=== PATIENT | female | born 1980 | race Caucasian/White ===

== ENCOUNTER 2018-08-08 12:50 | Day surgery (SDC) | payer OTHER ==
[2018-08-08] MEDS ORDERED: ONDANSETRON 4 MG/2 ML VIAL IVP ONE (13:15)
[2018-08-08] MEDS ORDERED: NS 1,000 ML IV ONE (13:15)
--- NOTE | 2018-08-08 13:15 | EDPHY ---
H & P Stated Complaint: c/o RLQ pain followed by n/v x 1 hr Time Seen by Provider: 08/08/18 13:15 HPI/ROS: CHIEF COMPLAINT: Acute right lower quadrant pain, vomiting HISTORY OF PRESENT ILLNESS: Patient presents the ED after she developed acute right lower quadrant pain with an episode of vomiting earlier today. The patient reports she had fairly significant discomfort for approximately an hour. It has improved however not subsided. She denies prior history of this type pain. She denies any antecedent dysuria or hematuria. She denies any history of abdominal surgery. She has no significant past medical history. She takes no regular medications. She just finished her most recent menstrual cycle. The patient currently rates her pain is moderate in nature. REVIEW OF SYSTEMS: A comprehensive 10 point review of systems is otherwise negative aside from elements mentioned in the history of present illness. Source: Patient Exam Limitations: No limitations - Medical/Surgical History Hx Asthma: No Hx Chronic Respiratory Disease: No Hx Diabetes: No Hx Cardiac Disease: No Hx Renal Disease: No Hx Cirrhosis: No Hx Alcoholism: No Hx HIV/AIDS: No Hx Splenectomy or Spleen Trauma: No Other PMH: none - Social History Smoking Status: Never smoked - Physical Exam Exam: General Appearance: Alert, no distress Eyes: Pupils equal and round no pallor or injection ENT, Mouth: Mucous membranes moist Respiratory: There are no retractions, lungs are clear to auscultation Cardiovascular: Regular rate and rhythm Gastrointestinal: Tenderness to deep palpation noted in the right lower quadrant and pelvic region, minimal right upper quadrant tenderness, no peritoneal signs, no guarding Neurological: 5/5 strength noted all 4 extremities Skin: Warm and dry, no rashes Musculoskeletal: Neck is supple nontender Extremities: symmetrical, full range of motion Constitutional: Initial Vital Signs Temperature (C) 36.5 C 08/08/18 12:54 Heart Rate 60 08/08/18 12:54 Respiratory Rate 16 08/08/18 12:54 Blood Pressure 107/62 08/08/18 12:54 O2 Sat (%) 97 08/08/18 12:54 O2 Delivery Mode Room Air Allergies/Adverse Reactions: No Known Allergies Allergy (Unverified 08/08/18 12:58) Home Medications: Medication Instructions Recorded NK [No Known Home Meds] 08/08/18 Medical Decision Making - Diagnostics Imaging Results: Imaging Impressions Pelvic/Renal Ultrasound 08/08/18 13:21 Impression: 1. No evidence of ovarian torsion, complex adnexal mass, or pelvic inflammation. 2. Incidental small 1.8 cm simple left ovarian cyst. Sachin Edmonds was notified of these findings by telephone at 2:32 PM on 08/08/[address] 08/08/18 14:42 Impression: 1. Findings compatible with appendicitis with moderate to marked periappendiceal inflammation but no abscess. 2. Incidental hypodensity right lobe liver that probably represents septated cyst or hemangioma. Findings discussed with Carlos Edmonds M.D. at 15:52 hour, 08/08/2018. ED Course/Re-evaluation: Patient presents to the ED for evaluation of right lower quadrant pain which was initially quite tense and now resolved. Patient has no prior history of the symptoms. She was noted to be moderately tender on exam. Patient had an IV established. She was noted to [place] [id number]. Liver function tests, electrolytes and test are negative. Patient underwent a pelvic ultrasound which demonstrated no evidence of ovarian pathology. I re-evaluated the patient at 2:45 p.m.. She continues to have ongoing right lower quadrant tenderness. While my clinical suspicion for appendicitis is low I cannot fully rule it out. I do feel the risks and benefits of CT scanning a reasonable to exclude the possibility of early appendicitis. The patient did have an IV established. She was treated with 30 mg of IV Toradol. CT scan does demonstrate appendicitis. I informed the patient of the finding. Consultation is made with Dr. Mata. The patient was given 2 g of cefotetan in the ED. Re-evaluated the patient at 4:00 p.m.. She is resting comfortably in the room. She reports minimal pain. She does not request additional pain medications. The patient's last p.o. intake was at 10 AM today. Differential Diagnosis: Differential diagnosis considered includes appendicitis, ectopic , ovarian torsion, PID - Data Points Laboratory Results: Laboratory Results 08/08/18 13:05 08/08/18 13:05 08/08/18 08/08/18 08/08/18 14:41 13:05 13:05 WBC RBC Hgb Hct MCV MCH MCHC RDW Plt Count MPV Neut % (Auto) Lymph % (Auto) Lea % (Auto) Eos % (Auto) Baso % (Auto) Nucleat RBC Rel Count Absolute Neuts (auto) Absolute Lymphs (auto) Absolute Monos (auto) Absolute Eos (auto) Absolute Basos (auto) Absolute Nucleated RBC Immature Gran % Immature Gran # Sodium 139 mEq/L mEq/L (135-145) Potassium 3.8 mEq/L mEq/L (3.5-5.2) Chloride 107 mEq/L mEq/L (97-110) Carbon Dioxide 22 mEq/l mEq/l (22-31) Anion Gap 10 mEq/L mEq/L (6-14) BUN 12 mg/dL mg/dL (7-23) Creatinine 0.8 mg/dL mg/dL (0.6-1.0) Estimated GFR > 60 Glucose 94 mg/dL mg/dL (70-100) Calcium 9.2 mg/dL mg/dL (8.5-10.4) Beta HCG, Qual NEGATIVE Urine Color YELLOW Urine Appearance MODERATELY TURBID Urine pH 5.0 (5.0-7.5) Ur Specific [place] 1.025 (1.002-1.030) Urine Protein NEGATIVE (NEGATIVE) Urine Ketones TRACE H (NEGATIVE) Urine Blood NEGATIVE (NEGATIVE) Urine Nitrate NEGATIVE (NEGATIVE) Urine Bilirubin NEGATIVE (NEGATIVE) Urine Urobilinogen NEGATIVE EU EU (0.2-1.0) Ur Leukocyte Esterase NEGATIVE (NEGATIVE) Urine Glucose NEGATIVE (NEGATIVE) 08/08/18 13:05 WBC 17.77 10^3/uL H 10^3/uL (3.80-9.50) RBC 4.36 10^6/uL 10^6/uL (4.18-5.33) Hgb 13.2 g/dL g/dL (12.6-16.3) Hct 39.3 % % (38.0-47.0) MCV 90.1 fL fL (81.5-99.8) MCH 30.3 pg pg (27.9-34.1) MCHC 33.6 g/dL g/dL (32.4-36.7) RDW 12.7 % % (11.5-15.2) Plt Count 219 10^3/uL 10^3/uL (150-400) MPV 10.6 fL fL (8.7-11.7) Neut % (Auto) 76.4 % H % (39.3-74.2) Lymph % (Auto) 12.7 % L % (15.0-45.0) Lea % (Auto) 5.0 % % (4.5-13.0) Eos % (Auto) 5.3 % % (0.6-7.6) Baso % (Auto) 0.3 % % (0.3-1.7) Nucleat RBC Rel Count 0.0 % % (0.0-0.2) Absolute Neuts (auto) 13.58 10^3/uL H 10^3/uL (1.70-6.50) Absolute Lymphs (auto) 2.25 10^3/uL 10^3/uL (1.00-3.00) Absolute Monos (auto) 0.89 10^3/uL H 10^3/uL (0.30-0.80) Absolute Eos (auto) 0.95 10^3/uL H 10^3/uL (0.03-0.40) Absolute Basos (auto) 0.05 10^3/uL 10^3/uL (0.02-0.10) Absolute Nucleated RBC 0.00 10^3/uL 10^3/uL (0-0.01) Immature Gran % 0.3 % % (0.0-1.1) Immature Gran # 0.05 10^3/uL 10^3/uL (0.00-0.10) Sodium Potassium Chloride Carbon Dioxide Anion Gap BUN Creatinine Estimated GFR Glucose Calcium Beta HCG, Qual Urine Color Urine Appearance Urine pH Ur Specific [place] Urine Protein Urine Ketones Urine Blood Urine Nitrate Urine Bilirubin Urine Urobilinogen Ur Leukocyte Esterase Urine Glucose Medications Given: Discontinued Medications Sodium Chloride (Ns) 1,000 mls @ 0 mls/hr IV EDNOW ONE; Wide Open PRN Reason: Protocol Stop: 08/08/18 13:16 Last Admin: 08/08/18 13:21 Dose: 1,000 mls Ketorolac Tromethamine (Toradol) 30 mg IVP EDNOW ONE Stop: 08/08/18 14:44 Last Admin: 08/08/18 14:47 Dose: 30 mg Ondansetron HCl (Zofran) 4 mg IVP EDNOW ONE Stop: 08/08/18 13:16 Last Admin: 08/08/18 13:18 Dose: Not Given Departure - Departure Disposition: [facility] Acute Clinical Impression: Acute appendicitis Condition: Good Referrals: NONE *PRIMARY CARE P,. [Primary Care Provider] - As per Instructions
[2018-08-08 13:20] LABS: PLATELET COUNT 219 10^3/uL (150-400)
[2018-08-08] MEDS ORDERED: KETOROLAC 30 MG/1 ML SDV IVP ONE (14:43)
[2018-08-08] MEDS ORDERED: IOPAMIDOL (ISOVUE-300) 100 ML BTL ONE (14:52)
[2018-08-08] MEDS ORDERED: cefOXitin SODIUM 2 GM in NS 100 ML IV ONE (15:53)
[2018-08-08] MEDS ORDERED: LR 1,000 ML IV ONE (16:32)
[2018-08-08] MEDS ORDERED: BUPIVACAINE 0.5% 30 ML SDV ONE (18:36)
[2018-08-08] MEDS ORDERED: MIDAZOLAM 2 MG/2 ML VIAL IVP ONE (18:41)
[2018-08-08] MEDS ORDERED: fentaNYL 100 MCG/2 ML INJ IVP PRN (18:43)
[2018-08-08] MEDS ORDERED: ACETAMINOPHEN 500 MG TAB PO PRN (18:43)
[2018-08-08] MEDS ORDERED: MEPERIDINE 25 MG/0.5 ML AMP IVP PRN (18:43)
[2018-08-08] MEDS ORDERED: PROMETHAZINE HCL 25 MG/ML INJ IVP PRN (18:43)
[2018-08-08] MEDS ORDERED: NALOXONE HCL 0.4 MG/ML INJ IVP PRN (18:43)
[2018-08-08] MEDS ORDERED: oxyCODONE IR 5 MG TAB PO PRN (18:43)
[2018-08-08] MEDS ORDERED: ONDANSETRON 4 MG/2 ML VIAL IVP PRN (18:43)
[2018-08-08] MEDS ORDERED: LR 500 ML IV PRN (18:43)
--- NOTE | 2018-08-08 18:43 | PDANEPAE ---
ANE Past Medical History - Pulmonary History Hx Sleep Apnea: No - Endocrine History Hx Diabetes: No Obesity: no ANE Review of Systems Review of Systems: ANE Patient History - Allergies Allergies/Adverse Reactions: No Known Allergies Allergy (Unverified 08/08/18 12:58) - Home Medications Home medications: home medication list seen and reviewed Home Medications: NK [No Known Home Meds] 08/08/18 [Last Taken Unknown] - NPO status NPO Since - Liquids (Date): 08/08/18 NPO Since - Liquids (Time): 11:00 NPO Since - Solids (Date): 08/08/18 NPO Since - Solids (Time): 10:00 - Anes Hx Anes Hx: no prior problems - Smoking Hx Smoking Status: Never smoked ANE Labs/Vital Signs - Labs Result Diagrams: 08/08/18 13:05 08/08/18 13:05 - Vital Signs Blood Pressure: 105/61 Heart Rate: 56 Respiratory Rate: 16 O2 Sat (%): 96 Height: 162.56 cm Weight: 72.575 kg ANE Physical Exam - Airway Neck exam: FROM Mallampati Score: Class 1 Mouth exam: normal dental/mouth exam - Pulmonary Pulmonary: no respiratory distress, no rales or rhonchi, clear to auscultation - Cardiovascular Cardiovascular: regular rate and rhythym, no murmur, rub, or gallop - ASA Status ASA Status: I, E ANE Anesthesia Plan Anesthesia Plan: general endotracheal anesthesia
--- NOTE | 2018-08-08 18:48 | GHP ---
[f rep st] HISTORY AND PHYSICAL DATE OF ADMISSION: 08/08/2018 CHIEF COMPLAINT: Acute appendicitis. HISTORY OF PRESENT ILLNESS: Tina is a 38-year-old woman, who started developing abdominal pain while at work today. She stopped eating a banana, and food does not sound good. She did have 1 episode of emesis. She has right lower quadrant pain. She presented to the emergency room due to the abdomina l pain. PAST MEDICAL HISTORY: None. PAST SURGICAL HISTORY: None. SOCIAL HISTORY: She has a new job. She has a 2-year-old son. She is a nonsmoker. FAMILY HISTORY: Noncontributory. REVIEW OF SYSTEMS: No fevers or chills. No hematuria, dysuria. No recent sick contacts. PHYSICAL EXAMINATION: VITAL SIGNS: 36.5, 60, 107/62, 16, 97% on room air. GENERAL: Pleasant, well- nourished, well-groomed woman sitting up on exam table. HEENT: Normocephalic. No gross hearing def icits. Mucous membranes moist. Pupils equal and round. No scleral icterus. LUNGS: Clear to auscu ltation bilaterally. No increased work of breathing. CARDIAC: Regular rate. No peripheral edema. ABDOMEN: Warm to the touch. Soft, tender in the right lower quadrant. Bowel sounds present. MUSC ULOSKELETAL: Normal nails. PSYCH: Mood and affect normal. NEURO: Grossly intact. LABORATORY DATA: I personally reviewed the results of her CBC. Her white count is 17,000. CT scan of her abdomen and pelvis shows acute appendicitis without abscess. ASSESSMENT/PLAN: Tina Ambriz is a 38-year-old with acute appendicitis. We discussed the risks and b enefits, including but not limited to stroke, heart attack, , blood clots, infection, bleeding, damage to surrounding structures. We discussed antibiotic therapy. Will proceed with going to the o perating room for a laparoscopic appendectomy. /[id number]/MODL
[2018-08-08] MEDS ORDERED: PROPOFOL 200 MG/20 ML VIAL ONE (18:49)
[2018-08-08] MEDS ORDERED: fentaNYL 100 MCG/2 ML INJ ONE (18:49)
[2018-08-08] MEDS ORDERED: DEXAMETHASONE 4 MG/ML VIAL ONE ×2 (18:52)
[2018-08-08] MEDS ORDERED: LIDOCAINE 2% 5 ML SDV ONE (18:52)
[2018-08-08] MEDS ORDERED: ROCURONIUM 50 MG/5 ML VIAL ONE (18:52)
[2018-08-08] MEDS ORDERED: ONDANSETRON 4 MG/2 ML VIAL ONE (18:52)
--- NOTE | 2018-08-08 20:10 | POSTOPPROG ---
Post Op Note Date of Operation: 08/08/18 Surgeon: Tarsha Mata Anesthesiologist: azalea Anesthesia: GET(General Endotracheal) Pre-op Diagnosis: acute appy Post-op Diagnosis: same Indication: 38 yo with acute appy Procedure: lap appy Findings: inflamed appendix Inf/Abcess present in the surg proc area at time of surgery?: No EBL: Minimal Specimen(s): appendix
--- NOTE | 2018-08-08 20:15 | POSTANESTH ---
Post Anesthetic Evaluation Cardiovascular Status: Normal, Stable, Similar to Pre-Op Cond Respiratory Status: Normal, Stable, Similar to Pre-op Cond. Level of Consciousness/Mental Status: Can Participate in Eval, Alert and Oriented Pain Control: Adequate, Prn Tx Ordered Nausea/Vomiting Control: Adequate, Prn Tx Ordered Complications Possibly Related to Anesthesia: None Noted
[2018-08-08 20:48] VITALS: BP 105/80
== END 2018-08-08 21:25 | disposition home or self-care (01) ==
LOC: UNDOADMOB 15:57 → FSGY 15:57 → UNDODISOB 21:25 → FSGY 21:25
PROVIDERS: ATTEND Surgery
PROC: 0DTJ4ZZ Resection of Appendix, Percutaneous Endoscopic Approach (ICD-10-PCS; principal; 2018-08-08 20:15)
DX: K35.80 Unspecified acute appendicitis (principal)
CPT/HCPCS: 96374; J0694; J1100; J1885; J2250; J2405; J2704; J3010; Q9967